=== PATIENT | female | born 1980 | race Caucasian/White ===

== ENCOUNTER 2016-07-08 09:33 | Inpatient (IN) | payer OTHER ==
[2016-07-08 10:21] LABS: ROM Internal QC QC Line Present
[2016-07-08] MEDS ORDERED: Dinoprostone* 10 MG VAG.SUPP VAGINAL ONE (11:34)
[2016-07-08 21:33] LABS: Hematocrit 41 % (35-47); Hemoglobin 14.2 g/dl (12.0-16.0); Mean Corpuscular HGB Conc 34 g/dl (31-36); Mean Corpuscular Hemoglobin 31 pg (27-31); Mean Corpuscular Volume 90 fL (80-97); Mean Platelet Volume 10 um3 (7.4-10.4); Red Cell Distribution Width 13 % (10.5-15); White Blood Count 11.4 10^3/ul (3.5-10.8)
[2016-07-09] MEDS ORDERED: Dinoprostone* 10 MG VAG.SUPP VAGINAL ONE ×2 (07:33→21:39)
[2016-07-10] MEDS ORDERED: Oxytocin in LR* 20 UNITS/1,000 ML BAG IVPB SCH (11:00)
[2016-07-10] MEDS ORDERED: D5LR 1000 ML BAG* 1,000 ML IV SCH (16:00)
[2016-07-10] MEDS ORDERED: OBEPIDURAL* 250 ML ONE (23:24)
[2016-07-11] MEDS ORDERED: Phenylephrine IV* 40 MCG/ML 10 ML SYRINGE IV PUSH PRN (00:03)
[2016-07-11] MEDS ORDERED: Famotidine TAB* 20 MG PO PRN (00:03)
[2016-07-11] MEDS ORDERED: Sodium Citrate/Citric Acid* 15 ML UDC PO PRN (00:03)
[2016-07-11] MEDS ORDERED: ceFOXitin 2 GM IVPREMIX* 2 GM/50 ML BAG ONE (04:45)
[2016-07-11] MEDS ORDERED: ceFOXitin 2 GM IVPREMIX* 2 GM/50 ML BAG IVPB ONE (04:45)
[2016-07-11] MEDS ORDERED: Sodium Citrate/Citric Acid* 15 ML UDC PO ONE (04:46)
[2016-07-11] MEDS ORDERED: Morphine PF AMP (0.5MG/ML)* 5 MG/10 ML AMP ONE (04:50)
[2016-07-11] MEDS ORDERED: OXYTOCIN* 10 UNITS/ML 1 ML VIAL ONE (05:34)
[2016-07-11] MEDS ORDERED: Nalbuphine* 20 MG/ML 1 ML VIAL IV PRN (06:26)
[2016-07-11] MEDS ORDERED: Ondansetron INJ* 2 MG/ML VIAL IV PRN (06:26)
[2016-07-11] MEDS ORDERED: oxyCODONE/Acetamin 5/325 MG* TAB PO PRN ×2 (06:26→21:20)
[2016-07-11] MEDS ORDERED: Naloxone* 0.4 MG/ML 1 ML VIAL IV PRN (06:26)
[2016-07-11] MEDS ORDERED: Witch Hazel PAD* JAR TOPICAL PRN (06:58)
[2016-07-11] MEDS ORDERED: Dibucaine 1% 28.35 GM TUBE PR PRN (06:58)
[2016-07-11] MEDS ORDERED: Glycerin ADULT SUPP PR PRN (06:58)
[2016-07-11] MEDS ORDERED: Acetaminophen TAB* 325 MG PO PRN (06:58)
[2016-07-11] MEDS ORDERED: Oxytocin in LR* 20 UNITS/1,000 ML BAG IVPB SCH (07:00)
[2016-07-11] MEDS: Docusate CAP* 100 MG PO SCH ×3 (09:13→21:13)
[2016-07-11] MEDS: Ibuprofen TAB* 400 MG PO SCH ×3 (09:13→19:52)
[2016-07-11] MEDS: Simethicone CHEW TAB* 80 MG PO SCH ×4 (09:13→21:13)
[2016-07-11] MEDS: OBEPIDURAL* 250 ML EPIDURAL SCH (20:06)
--- NOTE | 2016-07-12 00:57 | OP ---
OPERATIVE REPORT: [facility] DATE OF : 82 SURGEON: Scarlet Johnson MD PERINATAL INSTRUCTOR: Sailaja Lewis CNM ANESTHESIOLOGIST: Dr. Ugarte. ANESTHESIA: Epidural. PRE-OP DIAGNOSES: 41 weeks and 5 days gestation, arrest of dilation and descent at 9 cm. POST-OP DIAGNOSES: 41 weeks and 5 days gestation, arrest of dilation and descent at 9 cm. OPERATIVE PROCEDURE: Primary low flap transverse section via Pfannenstiel. Uterus closed in 2 layers. ESTIMATED BLOOD LOSS: 700 cc. SPECIMENS: None. FLUIDS: Per Anesthesia. DRAINS: Carpenter draining clear urine. FINDINGS: Viable male infant in the left occiput posterior position. Weight was 8 pounds 12 ounces. There was meconium present. Apgars were 9 and 9. Cord gases were 7.33 with a base excess of -2.9 and 7.27 with a base excess of - 2.4. Normal- appearing uterus. Normal-appearing ovaries and fallopian tubes bilaterally. COMPLICATIONS: None. COUNTS: Sponge, lap, and needle counts correct x2. CONDITION: The patient was brought to recovery room awake and in stable condition. DESCRIPTION OF PROCEDURE: The patient was brought to the operating room. A Carpenter catheter had been placed under sterile conditions earlier in labor. The patient was prepped and draped in the usual sterile fashion in the dorsal supine position with a leftward tilt. Time-out was performed. The epidural was tested and found to be adequate. A Pfannenstiel skin incision was made approximately 2 cm above the symphysis pubis and this was carried down to the underlying layer of fascia. The fascia was incised in the midline and the fascial incision was extended laterally. The fascia was grasped with a Francine clamp and the rectus muscle was dissected using sharp and and blunt dissection. The rectus muscle was found to be in the midline. The peritoneum was identified, tented up and entered bluntly. Peritoneal incision was extended bluntly. The bladder blade was inserted. The vesicouterine peritoneum was identified and a bladder flap was created. The bladder blade was reinserted. A low flap transverse incision was made on the uterus. This was extended bluntly. The was delivered atraumatically from the vertex presentation. The cord was milked. The cord was clamped and cut and the was handed off to the waiting coil former, Dr. Rodriguez. The Apgars were 9 and 9. Cord gases were sent. The placenta was delivered and the uterus was exteriorized. The uterus was cleared of all clots and debris and the uterine incision was repaired using a 0 Vicryl in a running locked fashion. A second layer of the same suture was used to imbricate and obtain excellent hemostasis. The abdomen and pelvis were copiously irrigated with warm normal saline. The ovaries and fallopian tubes were examined and found to be normal. Once again, the uterine incision was examined and found to be hemostatic. The uterus was returned to the pelvis. The gutters were cleared of all clots and debris and again, the uterine incision was examined and found to be hemostatic. The peritoneum was closed with 3- 0 Vicryl. The subfacial layer was examined and found to be hemostatic. The fascia was closed using 0 Vicryl. The subcutaneous tissue was irrigated. Any small bleeders were cauterized with the Bovie and the skin was closed with 4-0 Monocryl in a subcuticular fashion. Steri-Strips were applied. A pressure dressing was applied and the patient was brought to the recovery room awakened, in stable condition with a Carpenter Catheter draining clear urine. [id number] #: [id number] HARESH
[2016-07-12] MEDS: Ibuprofen TAB* 600 MG PO PRN ×3 (03:30→17:42)
[2016-07-12] MEDS: OBEPIDURAL* 250 ML EPIDURAL SCH (04:48)
[2016-07-12 07:52] LABS: Hematocrit 24 % (35-47); Hemoglobin 8.2 g/dl (12.0-16.0); Mean Corpuscular HGB Conc 34 g/dl (31-36); Mean Corpuscular Hemoglobin 31 pg (27-31); Mean Corpuscular Volume 92 fL (80-97); Mean Platelet Volume 9 um3 (7.4-10.4); Red Blood Count 2.65 10^6/ul (4.0-5.4); Red Cell Distribution Width 13 % (10.5-15); White Blood Count 21.5 10^3/ul (3.5-10.8)
[2016-07-12 08:00] LABS: Add Diff/Slide Review? Slide Review Added; Comments Flag Yes
[2016-07-12] MEDS: Simethicone CHEW TAB* 80 MG PO SCH ×4 (09:18→21:03)
[2016-07-12] MEDS: Ferrous Gluconate TAB* 324 MG TAB PO SCH ×2 (09:18→21:04)
[2016-07-12] MEDS: Docusate CAP* 100 MG PO SCH ×3 (09:18→21:04)
[2016-07-12] MEDS: oxyCODONE/Acetamin 5/325 MG* TAB PO PRN ×2 (14:22→21:04)
[2016-07-13] MEDS: Ibuprofen TAB* 600 MG PO PRN ×4 (00:19→19:37)
[2016-07-13] MEDS: oxyCODONE/Acetamin 5/325 MG* TAB PO PRN ×3 (05:28→17:44)
[2016-07-13] MEDS: Ferrous Gluconate TAB* 324 MG TAB PO SCH ×2 (07:24→21:11)
[2016-07-13] MEDS: Docusate CAP* 100 MG PO SCH ×3 (07:24→21:11)
[2016-07-13] MEDS: Simethicone CHEW TAB* 80 MG PO SCH ×5 (07:24→21:11)
[2016-07-14] MEDS: Ibuprofen TAB* 600 MG PO PRN ×3 (01:11→13:51)
[2016-07-14] MEDS: Simethicone CHEW TAB* 80 MG PO SCH ×2 (08:10→13:51)
[2016-07-14] MEDS: Ferrous Gluconate TAB* 324 MG TAB PO SCH (08:11)
[2016-07-14] MEDS: oxyCODONE/Acetamin 5/325 MG* TAB PO PRN ×2 (08:11→13:51)
[2016-07-14] MEDS: Docusate CAP* 100 MG PO SCH ×2 (08:11→13:51)
[2016-07-14 08:22] VITALS: BP 140/83
== END 2016-07-14 15:19 | disposition home or self-care (01) | DRG 766 ==
LOC: MCHOBOUT 09:33 → MCHOB 09:58
PROVIDERS: ADMIT Midwife; ATTEND Obstetrics & Gynecology
PROC: 4A1HXCZ Monitoring of Products of Conception, Cardiac Rate, External Approach (ICD-10-PCS; 2016-07-11)
PROC: 10907ZC Drainage of Amniotic Fluid, Therapeutic from Products of Conception, Via Natural or Artificial Opening (ICD-10-PCS; 2016-07-11)
PROC: 3E0P7GC Introduction of Other Therapeutic Substance into Female Reproductive, Via Natural or Artificial Opening (ICD-10-PCS; 2016-07-11)
PROC: 3E033VJ Introduction of Other Hormone into Peripheral Vein, Percutaneous Approach (ICD-10-PCS; 2016-07-11)
PROC: 10D00Z1 Extraction of Products of Conception, Low, Open Approach (ICD-10-PCS; principal; 2016-07-11 04:56)
DX: O41.03X0 Oligohydramnios, third trimester, not applicable or unspecified (principal); O48.0 Post-term pregnancy; O77.0 Labor and delivery complicated by meconium in amniotic fluid; O90.81 Anemia of the puerperium; O62.1 Secondary uterine inertia; Z3A.41 41 weeks gestation of pregnancy; Z37.0 Single live birth
CPT/HCPCS: 36415; 59200; 84112; 85025; 86850; 86900; 86901; A9270-GY; J0694; J2405; J2590